=== PATIENT | female | born 1995 | race American Indian/Alaskan Native ===

== ENCOUNTER 2022-07-02 05:50 | Day surgery (SDC) | payer BC, OTHER ==
[~2022-07-02] VITALS: Ht 157.5 cm; Wt 83.5 kg
--- NOTE | ~2022-07-02 | OR ---
[facility] [address] [place], [place] [address] Draft DATE OF OPERATION: 07/02/2022 SURGEON: Sherie Miller MD PREOPERATIVE DIAGNOSIS: Missed , hydrops. POSTOPERATIVE DIAGNOSIS: Missed , hydrops. PROCEDURE: Suction D and C. ANESTHESIA: MAC. ESTIMATED BLOOD LOSS: 200 mL. DRAINS: None. INDICATIONS AND FINDINGS: The patient is a 26-year-old female, who was noted on her ultrasound to have hydrops. At the time of her evaluation by Maternal Medicine at 12 weeks gestation, fetus had demised. Because of the size of her uterus and the amount of tissue, it was felt prudent to proceed with suction D and C. She had only minimal spotting. Her uterus was approximately 13 week size and her cervix was closed. There was a large amount of tissue within the uterus. DESCRIPTION OF PROCEDURE: The patient was prepped and draped in the dorsal lithotomy position. A weighted speculum was placed. The anterior lip of the cervix was visualized and grasped with a single-tooth tenaculum. The cervical canal was dilated to a #12 dilator. The #12 curved suction curette was then introduced and a large amount of tissue removed with the suction. On withdrawal, there was quite a bit of tissue presenting at the cervical os and this was teased out using ring forceps. Repeat suction curettage was done again with large amount of tissue found. Sharp curettage was then done with a small amount of tissue found. The suction curettage was repeated. At this point, the cavity felt much smaller and well contracted. No further tissue was found with the sharp curette and the PATIENT NAME: STEVE REAL OPERATIVE REPORT DATE OF : [birth year] REPORT #: [id number] PHYSICIAN: SHERIE MILLER MD PCP: FRANCISCO JAVIER LEON MD REPORT IS CONFIDENTIAL AND NOT TO BE RELEASED WITHOUT AUTHORIZATION [facility] [address] [place] [id number] Draft procedure was terminated. She did receive IV Pitocin drip as well as IM Methergine for some atony which improved quickly. After removal of the tenaculum, there was some bleeding from the tenaculum sites and this did not resolve with pressure with the ring forceps. Several sutures of 0 chromic were required to control bleeding. Following this, there was no evidence of any ongoing bleeding. The patient tolerated the procedure well and was taken to the recovery room in good condition. MD RAFAEL Sandhu/MODL /[id number] cc: [facility] Copies: ~ PATIENT NAME: STEVE REAL OPERATIVE REPORT DATE OF : [birth year] REPORT #: [id number] PHYSICIAN: SHERIE MILLER MD PCP: FRANCISCO JAVIER LEON MD REPORT IS CONFIDENTIAL AND NOT TO BE RELEASED WITHOUT AUTHORIZATION
[~2022-07-02 05:50] MED LIST: BUSPIRONE HCL15 MG PO; INSULIN GL100 UNIT/2 SQ; PROZAC40 MG PO; VITAMIN D250 MCG PO
--- NOTE | 2022-07-02 08:13 | NUR ---
07/02/22 0813 Asmita Fraire [id number]-PATIENT ARRIVED TO PACU ON 6L MASK NASAL AIRWAY IN MOUTH NONAROUSABLE RN DOING JAW TILT TO MAINTAIN AIRWAY. 90% ON 6L MASK PLACED ON 10L O2 SAT INCREASED TO 93% RR EVEN. NO DRAINAGE TO SIDNEY PAD. LR WITH PITOCIN INFUSING. 0810-PATIENT MAINTAING AIRWAY WITH NASAL AIRWAY IN PLACE. 10L MASK RR EVEN 0812-PATIENT AROUSING OPENING EYES ORIENTED TO PACU ORAL AIRWAY REMOVED. 10 LMASK 98% RR EVEN.
[2022-07-02] MEDS ORDERED: MOTRIN IB200 MG PO (08:53)
[2022-07-02] MEDS ORDERED: HYDROCODON-ACE1 EA10 PO (08:54)
== END 2022-07-02 09:30 | disposition home or self-care (01) ==
LOC: OPS 05:50 → DS 05:50 → OPS 07:30 → DS 08:30 → OPS 09:30
PROVIDERS: ATTEND Obstetrics & Gynecology
PROC: 10D17ZZ Extraction of Products of Conception, Retained, Via Natural or Artificial Opening (ICD-10-PCS; principal; 2022-07-02 07:30)
DX: O02.1 Missed abortion (principal); O36.21 Maternal care for hydrops fetalis, first trimester; O24.111 Pre-existing type 2 diabetes mellitus, in pregnancy, first trimester; O99.341 Other mental disorders complicating pregnancy, first trimester; F41.9 Anxiety disorder, unspecified; F32.A Depression, unspecified
CPT/HCPCS: 01965; J0131; J0690; J1100; J1885; J2001; J2210; J2250; J2370; J2405; J2590; J2704; J2765; J3010; J7121

== ENCOUNTER 2022-07-23 23:34 | Emergency (ER) | payer BC, OTHER ==
[~2022-07-23] VITALS: Ht 157.5 cm; Wt 83.9 kg
[~2022-07-23 23:34] MED LIST changes: +HYDROCODON-ACE1 EA10 PO; +MOTRIN IB200 MG PO
[2022-07-24 03:23] VITALS: BP 108/69
== END 2022-07-24 03:23 | disposition home or self-care (01) ==
LOC: ED 23:34
DX: R10.31 Right lower quadrant pain (principal); N83.202 Unspecified ovarian cyst, left side; Z79.4 Long term (current) use of insulin
CPT/HCPCS: 36415; 74177; 80053; 81001; 83690; 84703; 85025; 99284-25; J7030; Q9967

== ENCOUNTER 2023-12-29 07:44 | Emergency (ER) | payer BC, OTHER ==
[~2023-12-29] VITALS: Ht 157.5 cm; Wt 86.1 kg
[~2023-12-29 07:44] MED LIST changes: +CYCLOBENZAPRINE10 MG PO; +METHYLPREDNISOLO4 M1 PO; +OXYCODONE HCL5 MG PO; +OZEMPIC2 MG/0.75 SUB-Q; +PROZAC20 MG PO; -PROZAC40 MG PO
--- OUTSIDE RECORDS SUMMARY | 2023-12-29 07:48 | XMS ---
PreManage Notification: STEVE REAL Security [employer] Events No recent Security Events currently on file CRITERIA MET - [facility] - 2 Visits in 30 Days CARE PROVIDERS There are no care providers on record at this time. Sahra has no Care Guidelines for this patient. [facility] VISIT COUNT (12 MO.) 2 [facility] T[facility] 2 NOTE: Visits indicate total known visits. ED/[facility] VISIT TRACKING (12 MO.) 12/[facility]/2023 07[facility]44 [facility] COMPLAINT: - BACK PAIN 12/19/2023 09:[address] [facility] [place] TYPE: Emergency COMPLAINT: - BACK PAIN DIAGNOSES: - FPC (current) use of insulin - Low back pain, unspecified - Other care home (current) drug therapy - Type 2 diabetes mellitus without complications INPATIENT VISIT TRACKING (12 MO.) No inpatient visits to display in this time frame [email or web address]
[2023-12-29] MEDS ORDERED: KETOROLAC TROMETHAMINE 30 MG/ML VIAL IV ONE (08:15)
[2023-12-29] MEDS ORDERED: ACETAMINOPHEN 500 MG TAB PO ONE (08:15)
[2023-12-29] MEDS ORDERED: methocarbamoL 500 MG TABLET PO ONE (08:15)
[2023-12-29] MEDS ORDERED: HYDROmorphone HCL 1 MG/ML SYR IV PRN (09:15)
[2023-12-29] MEDS ORDERED: METHOCARBAMOL500 MG PO (11:09)
[2023-12-29 12:27] VITALS: BP 133/95
== END 2023-12-29 12:29 | disposition home or self-care (01) ==
LOC: ED 07:44
DX: M54.50 Low back pain, unspecified (principal); E11.9 Type 2 diabetes mellitus without complications; Z79.899 Other long term (current) drug therapy; Z79.4 Long term (current) use of insulin
CPT/HCPCS: 72100; 84703; 96374; 96375; 99284-25; A9270; J1170; J1885